=== PATIENT | female | born 1980 | race Caucasian/White ===

== ENCOUNTER → 2017-06-23 | Outpatient (CLI) | payer OTHER ==
--- NOTE | 2017-06-23 16:40 | RADIOLOGY IMAGING REPORT ---
FACILITY: [facility] PATIENT NAME: Kymberly Styles : 1980 MR: [id number] V: [id number] EXAM DATE: ORDERING PHYSICIAN: JAN SARMIENTO TECHNOLOGIST: [place] [facility] [place] Patient: Kymberly Styles : 1980 Visit/Account:[id number] Date of Sevice: 06/23/2017 Exam type: 2 views right hip History: Right hip pain Comparison: None. Findings: There is some sclerosis of the acetabula bilaterally greater on the right suggestive of mild changes of osteoarthritis. No acute fracture. Remainder of the pelvis is unremarkable. Soft tissues are un remarkable. IMPRESSION: 1. Mild osteoarthritis of the right hip. Report Dictated By: Florencio Hernandez MD at 06/23/2017 4:35 PM Report E-Signed By: Florencio Hernandez MD at 06/23/2017 4:36 PM WSN:[email or web address]
== END ==
LOC: RAD 16:11
PROVIDERS: ATTEND Nurse Practitioner Family
DX: M16.11 Unilateral primary osteoarthritis, right hip (principal)

== ENCOUNTER → 2017-07-10 | Outpatient (CLI) | payer OTHER ==
--- NOTE | 2017-07-10 11:05 | RADIOLOGY IMAGING REPORT ---
FACILITY: [facility] PATIENT NAME: Kymberly Styles : 1980 MR: [id number] V: [id number] EXAM DATE: ORDERING PHYSICIAN: JAN SARMIENTO TECHNOLOGIST: Location: [facility] - [place] Patient: Kymberly Styles : 1980 Visit/Account:[id number] Date of Sevice: 07/10/2017 HIP RIGHT W/O CONTRAST COMPARISON: None. HISTORY: Right hip and groin pain, weakness, decreased range of motion. Right hip joint instability. The patient reports clicking and catching mid strident joint instability. History of suspected angel l tear after physical therapy evaluation.. TECHNIQUE: Coronal T1 weighted, axial and coronal STIR large field of view images of both hips and t he pelvis. Dedicated smaller field of view sagittal and coronal PD fat-saturated images of the right hip. CONTRAST: None. FINDINGS: The femoral heads are well formed and seated within well formed acetabula. There is no femoral avascu lar necrosis, fracture or significant osteoarthritis. On the small [id number] images of the right hip, there is abnormal intermediate signal within the anterior superior labrum and within the superio r labrum laterally, consistent with separate labral tears, most extensive in the anterior superior la harley. The lower lumbar spine, sacroiliac joints and pubic symphysis are unremarkable. There is no marrow signal abnormality or osseous malalignment. There is no hip effusion, iliopsoas or trochanteric bursitis. There is no muscle atrophy or edema. The visualized tendinous origins and tendinous insertions of the gluteal and iliopsoas muscles, as we ll as the origins of the hamstrings, quadriceps and adductor muscle groups are intact. No intrapelvic visceral abnormalities are seen. IMPRESSION: Separate tears of the lateral, superior labrum and anterior superior labrum of the right hip. Report Dictated By: Roel Cosme at 07/10/2017 10:53 AM Report E-Signed By: Roel Cosme at 07/10/2017 10:59 AM WSN:[email or web address]
== END ==
LOC: MRI 00:56
PROVIDERS: ATTEND Nurse Practitioner Family
DX: S76.011A Strain of muscle, fascia and tendon of right hip, initial encounter (principal)

== ENCOUNTER 2018-11-13 11:35 | Emergency (ER) | payer OTHER ==
[~2018-11-13 11:35] MED LIST changes: -CANN100S; -L.AC1CAP6; -MULT-111; -ONDA4TAB9 PO
--- NOTE | 2018-11-13 11:45 | ER Report ---
History and Physical Time Seen By MD: 11:43 HPI/ROS CHIEF COMPLAINT: Left lower quadrant abdominal pain HISTORY OF PRESENT ILLNESS: 38-year-old female patient presents to emergency room with complaint of left lower quadrant abdominal pain. Patient states the pain is located just on the left side down low in the pelvis. She states that it has been hurting for the past several days. She states she has seen her primary care provider. She did order some lab work, CT scan. Patient did get some lab work done, has not yet received her CT scan. She states that the pain seemed to get worse this afternoon. States it started when she was doing some yard work approximately 7 days ago. States she squatted down and felt pain. She states that after that she's having popping in the left hip. She states she is not taking any medication for this. She states the pain seems to get worse. She states that she does not have any worsening pain with ambulation. She states that she does have history of a right labral tear, however is concerned that she may have torn the left labrum now. Patient denies any fevers, chills, nausea, vomiting. Patient states she's had diarrhea, she thought that was more associated with a flareup of her IBS. REVIEW OF SYSTEMS: Respiratory: No cough, no dyspnea. Cardiovascular: No chest pain, no palpitations. Gastrointestinal: As noted above Musculoskeletal: No back pain. Allergies: Coded Allergies: No Known Drug Allergies (Unverified , 11/09/18) Home Meds Active Scripts Ondansetron 4 Mg Odt (ONDANSETRON 4 MG ODT) 4 Mg Tab.rapdis, 4 MG PO Q6H PRN for NAUSEA/VOMITING, #20 TAB Prov:MICHELE SOLORIO [facility] 11/13/18 Tramadol Hcl (TRAMADOL HCL) 50 Mg Tablet, 1-2 TAB PO Q6H PRN for PAIN, #12 TAB 0 Refills Prov:ANDREA HERRING DNP [facility] 11/09/18 Dicyclomine Hcl (DICYCLOMINE HCL) 20 Mg Tablet, 1 TAB PO QID, #40 TAB 0 Refills Prov:ANDREA HERRING DNP [facility] 11/09/18 Reported Medications Cannabidiol (Cbd) Extract (Epidiolex) Unknown Strength Solution 11/13/18 L.acidoph & Paracasei,B.lactis (Probiotic) Unknown Strength Capsule 11/13/18 Multivitamin (One-Daily Multi-Vitamin) Unknown Strength Tablet 11/13/18 Past Medical/Surgical History Patient has past medical history of endometriosis, IBS. Patient has surgical history of appendectomy, hysterectomy. Reviewed Nurses Notes: Yes Constitutional Vital Sign - Last 24 Hours 11/13/18 11/13/18 11:47 14:20 Temp 98.2 Pulse 91 85 Resp 16 16 B/P (MAP) 113/83 108/72 (84) Pulse Ox 96 92 O2 Delivery Room Air Room Air Physical Exam General Appearance: The patient is alert, has no immediate need for airway protection and no current signs of toxicity. ENT: Tympanic membranes are pearly-medrano, auditory canals are patent, mucous membranes are moist. Respiratory: Chest is non tender, lungs are clear to auscultation. Cardiac: regular rate and rhythm Gastrointestinal: Abdomen is soft and tender in the left lower quadrant, no masses, bowel sounds normal. Musculoskeletal: Neck: Neck is supple and non tender. Extremities have full range of motion and are non tender. Patient has pain in the left lower quadrant with internal rotation as well as external rotation of the left leg. Skin: No rashes or lesions. DIFFERENTIAL DIAGNOSIS: After history and physical exam differential diagnosis was considered for abdominal pain including but not limited to appendicitis, cholecystitis, gastritis and urinary tract infection. Included in the differential is a labrum tear, muscle skeletal injury. Medical Decision Making Data Points Laboratory Hematology Test 11/13/18 12:03 Urine Color Colorless Urine Clarity Clear Urine pH 7.0 pH (4.8-9.5) Urine Specific [place] 1.001 Urine Protein Negative mg/dL (NEGATIVE) Urine Glucose (UA) Negative mg/dL (NEGATIVE) Urine Ketones Negative mg/dL (NEGATIVE) Urine Blood Negative (NEGATIVE) Urine Nitrite Negative (NEGATIVE) Urine Bilirubin Negative (NEGATIVE) Urine Urobilinogen Negative mg/dL (0.2-1.9) Urine Leukocyte Esterase Negative (NEGATIVE) Urine RBC None /HPF (0-2/HPF) Urine WBC 2 /HPF (0-5/HPF) Urine Squamous Epithelial Cells Few /LPF (</=FEW) Urine Bacteria Negative /HPF (NONE-FEW) Urine Mucus None /HPF (NONE-FEW) Amylase Level 70 U/L (0-110) Lipase 115 U/L (23-300) Chemistry Test 11/13/18 12:03 Urine Color Colorless Urine Clarity Clear Urine pH 7.0 pH (4.8-9.5) Urine Specific [place] 1.001 Urine Protein Negative mg/dL (NEGATIVE) Urine Glucose (UA) Negative mg/dL (NEGATIVE) Urine Ketones Negative mg/dL (NEGATIVE) Urine Blood Negative (NEGATIVE) Urine Nitrite Negative (NEGATIVE) Urine Bilirubin Negative (NEGATIVE) Urine Urobilinogen Negative mg/dL (0.2-1.9) Urine Leukocyte Esterase Negative (NEGATIVE) Urine RBC None /HPF (0-2/HPF) Urine WBC 2 /HPF (0-5/HPF) Urine Squamous Epithelial Cells Few /LPF (</=FEW) Urine Bacteria Negative /HPF (NONE-FEW) Urine Mucus None /HPF (NONE-FEW) Amylase Level 70 U/L (0-110) Lipase 115 U/L (23-300) Urinalysis Test 11/13/18 12:03 Urine Color Colorless Urine Clarity Clear Urine pH 7.0 pH (4.8-9.5) Urine Specific [place] 1.001 Urine Protein Negative mg/dL (NEGATIVE) Urine Glucose (UA) Negative mg/dL (NEGATIVE) Urine Ketones Negative mg/dL (NEGATIVE) Urine Blood Negative (NEGATIVE) Urine Nitrite Negative (NEGATIVE) Urine Bilirubin Negative (NEGATIVE) Urine Urobilinogen Negative mg/dL (0.2-1.9) Urine Leukocyte Esterase Negative (NEGATIVE) Urine RBC None /HPF (0-2/HPF) Urine WBC 2 /HPF (0-5/HPF) Urine Squamous Epithelial Cells Few /LPF (</=FEW) Urine Bacteria Negative /HPF (NONE-FEW) Urine Mucus None /HPF (NONE-FEW) EKG/Imaging Imaging CT ABDOMEN PELVIS W/ CON HISTORY: LLQ abdominal pain TECHNIQUE: Following administration of IV contrast contiguous axial images acquired through the abdomen/pelvis. Coronal and sagittal reformatting also performed.Dose Lowering Technique One of the following dose optimization techniques was utilized in the performance of this exam: Automated exposure control; adjustment of the mA and/or kV according to the patient's size; or use of an iterative reconstruction technique. Specific details can be referenced in the facility's radiology CT exam operational policy. CONTRAST: 75 mL Isovue-370 COMPARISON: None. FINDINGS: Visualized lung bases: Negative. Hepatobiliary: There is a subtle subcentimeter hypodensity in the inferior right lobe the liver which is too small to characterize Spleen: Accessory splenule Adrenals: Negative. Pancreas: Negative. Kidneys ureters or bladder: There is a 2 mm nonobstructing calculus upper pole calyx of the right kidney. There is a 3 mm nonobstructing calculus lower pole calyx of the left kidney. No evidence of hydronephrosis Genitalia: Hysterectomy GI: There surgical clips adjacent to the cecum likely related to prior appendectomy Vessels/spaces/nodes: Negative. Bones/soft tissues: There is a small umbilical hernia containing fat. There is a Schmorl's node along the superior endplate of L1 Additional findings: None pertinent. IMPRESSION: Nonobstructing nephrolithiasis Postsurgical changes from hysterectomy Small umbilical hernia containing fat Report Dictated By: Nissa Buitrago MD at 11/13/2018 1:16 PM Report E-Signed By: Nissa Buitrago MD at 11/13/2018 1:22 PM ED Course/Re-evaluation ED Course Patient was admitted to exam room, history and physical were obtained. Differential diagnoses were considered. On examination lungs are clear, heart is regular, abdomen is soft and tender in the left groin. Patient had had lab work done this morning. I did review that. Lab results were unremarkable. A urinalysis was obtained here which was negative. An IV was started, and amylase and lipase were done. Those were also negative. A CT scan of the abdomen and pelvis was done. Showed no acute findings, there were 2 nonobstructing kidney stones in her kidneys. There is no explanation for the pain that she was feeling. We will go ahead and discharge patient home at this time. She states Tylenol ibuprofen in addition to tramadol sure he has. Patient did request some medication for nausea and was given a prescription for Zofran. She is follow-up with her primary care provider or with [facility] in the next week. She is to alternate ice and heat to the groin. She is return to emergency room if condition worsens. Patient verbalized understanding and agreement with plan. Decision to Disposition Date: Nov 13, 2018 Decision to Disposition Time: 13:40 Depart Departure Latest Vital Signs Vital Signs Date Time Temp Pulse Resp B/P (MAP) Pulse Ox O2 Delivery O2 Flow Rate FiO2 11/13/18 14:20 85 16 108/72 (84) 92 Room Air 11/13/18 11:47 98.2 Impression: Primary Impression: Left groin pain Condition: Condition Unchanged Disposition: HOME OR SELF-CARE Referrals: ANDREA HERRING DNP, [facility] (PCP) New Scripts Ondansetron 4 Mg Odt (ONDANSETRON 4 MG ODT) 4 Mg Tab.rapdis 4 MG PO Q6H PRN for NAUSEA/VOMITING, #20 TAB Prov: MICHELE SOLORIO 11/13/18 Patient Instructions: Groin Pain (ED) Additional Instructions: Limit activity by pain. Alternate ice and heat. Get plenty of rest. Follow up with your primary care provider in the next week. Return to the ER if condition worsens. You may follow up with [facility] in the next week for further evaluation. You may take Ibuprofen or the Tramadol as needed for pain. MICHELE SOLORIO Nov 13, 2018 11:45
[2018-11-13] MEDS ORDERED: NS(*) 0.9% 1000 ML BAG 1,000 ML IV ONE (11:52)
[2018-11-13] MEDS ORDERED: KETOROLAC 30 MG/ML VIAL IVP ONE (11:55)
[2018-11-13] MEDS ORDERED: ONDANSETRON 4 MG/2 ML VIAL IVP ONE (11:55)
[2018-11-13] MEDS ORDERED: MULT-111 (12:09)
[2018-11-13] MEDS ORDERED: L.AC1CAP6 (12:09)
[2018-11-13] MEDS ORDERED: CANN100S (12:16)
[2018-11-13] MEDS ORDERED: IOPAMIDOL 76% 100 ML INFUS BTL 100 ML ONE (12:23)
--- NOTE | 2018-11-13 13:28 | RADIOLOGY IMAGING REPORT ---
FACILITY: [facility] - [place] PATIENT NAME: Kymberly Styles : 1980 MR: [id number] V: [id number] EXAM DATE: ORDERING PHYSICIAN: MICHELE SOLORIO TECHNOLOGIST: Location: [facility] - [place] Patient: Kymberly Styles : 1980 Visit/Account:[id number] Date of Sevice: 11/13/2018 CT ABDOMEN PELVIS W/ CON HISTORY: LLQ abdominal pain TECHNIQUE: Following administration of IV contrast contiguous axial images acquired through the abdom en/pelvis. Coronal and sagittal reformatting also performed.Dose Lowering Technique One of the following dose optimization techniques was utilized in the performance of this exam: Autom ated exposure control; adjustment of the mA and/or kV according to the patient's size; or use of an i terative reconstruction technique. Specific details can be referenced in the facility's radiology C T exam operational policy. CONTRAST: 75 mL Isovue-370 COMPARISON: None. FINDINGS: Visualized lung bases: Negative. Hepatobiliary: There is a subtle subcentimeter hypodensity in the inferior right lobe the liver whic h is too small to characterize Spleen: Accessory splenule Adrenals: Negative. Pancreas: Negative. Kidneys ureters or bladder: There is a 2 mm nonobstructing calculus upper pole calyx of the right kid blanco. There is a 3 mm nonobstructing calculus lower pole calyx of the left kidney. No evidence of hy dronephrosis Genitalia: Hysterectomy GI: There surgical clips adjacent to the cecum likely related to prior appendectomy Vessels/spaces/nodes: Negative. Bones/soft tissues: There is a small umbilical hernia containing fat. There is a Schmorl's node along the superior endplate of L1 Additional findings: None pertinent. IMPRESSION: Nonobstructing nephrolithiasis Postsurgical changes from hysterectomy Small umbilical hernia containing fat Report Dictated By: Nissa Buitrago MD at 11/13/2018 1:16 PM Report E-Signed By: Nissa Buitrago MD at 11/13/2018 1:22 PM WSN:[email or web address]
[2018-11-13] MEDS ORDERED: ONDA4TAB9 PO (14:06)
[2018-11-13 14:20] VITALS: BP 108/72
== END 2018-11-13 14:22 | disposition home or self-care (01) ==
LOC: ER 11:39
DX: R10.32 Left lower quadrant pain (principal); Z79.899 Other long term (current) drug therapy
CPT/HCPCS: 74177; 81001; 82150; 83690; 96361; 96374; 99284; J1885; J2405; J7030; Q9967

== ENCOUNTER → 2018-11-13 | Outpatient (CLI) | payer OTHER ==
[~2018-11-13] MED LIST: CANN100S; DICY20TA70 PO; L.AC1CAP6; MULT-111; ONDA4TAB9 PO; TRAM-420 PO
[2018-11-13 09:27] LABS: PLATELET COUNT, AUTOMATED 225 K/uL (150-450)
== END ==
LOC: LAB 08:35
PROVIDERS: ATTEND Nurse Practitioner Primary Care
DX: R10.32 Left lower quadrant pain (principal)
CPT/HCPCS: 36415; 81001; 82040; 82247; 82310; 82374; 82435; 82565; 82947; 84075; 84132; 84155; 84295; 84450; 84460; 84520; 85025; 86140